=== PATIENT | female | born 1985 | race African-American/Black ===

== ENCOUNTER 2025-03-19 12:56 | Emergency (ER) | payer OTHER ==
[~2025-03-19] VITALS: Ht 172.7 cm; Wt 99.0 kg
[2025-03-19 13:06] VITALS: O2SAT 98
[2025-03-19] MEDS: CYCLOBENZAPRINE 10MG TABLET PO ONE (15:09)
[2025-03-19] MEDS: KETOROLAC 30MG/ML VIAL IM ONE (15:09)
[2025-03-19] MEDS: LIDOCAINE 5% PATCH TOP STA (15:09)
[2025-03-19] MEDS ORDERED: IBUP-1455 MT (17:54)
[2025-03-19] MEDS ORDERED: CYCL10TA21 MT (17:54)
[2025-03-19] MEDS ORDERED: LIDO700A30 TP (17:54)
[2025-03-19 18:06] VITALS: BP 140/59; PULSE 78; RESP 18; TEMP 36.7; O2SAT 98
== END 2025-03-19 18:07 | disposition home or self-care (01) ==
LOC: ER 12:56
DX: M54.2 Cervicalgia (principal); M79.621 Pain in right upper arm; V89.2XXA Person injured in unspecified motor-vehicle accident, traffic, initial encounter; Y93.89 Activity, other specified; Y92.410 Unspecified street and highway as the place of occurrence of the external cause; Y99.8 Other external cause status
CPT/HCPCS: 81025; 70450; 72125; 96372; 99285; J1885; Z7610